=== PATIENT | female | born 1990 | race American Indian/Alaskan Native ===

== ENCOUNTER 2016-08-24 09:05 | Day surgery (SDC) | payer OTHER ==
[~2016-08-24 09:05] MED LIST: ANCEF/STERILE WATER 2 GM/20 ML IV NR
[2016-08-24] MEDS ORDERED: DILAUDID ONE ×3 (09:52→17:15)
[2016-08-24] MEDS ORDERED: DIPRIVAN 10 MG/ML IV ONE ×2 (09:52→13:24)
[2016-08-24] MEDS ORDERED: NACL 0.9% 1000 ML 1,000 ML ONE ×2 (10:28→13:05)
[2016-08-24 10:52] LABS: Basophils % (Auto) 0.4 % (0.0-1.8); Eosinophils % (Auto) 0.2 % (0.0-4.3); Hematocrit 40.1 % (30.3-42.9); Hemoglobin 13.4 gm/dl (10.1-14.3); Mean Corpuscular HGB Conc 33 % (30-34); Mean Corpuscular Hemoglobin 31 pg (28-32); Mean Corpuscular Volume 92 fl (79-97); Platelet Count 328 K/mm3 (140-440); Red Blood Count 4.37 M/mm3 (3.65-5.03); Red Cell Distribution Width 13.3 % (13.2-15.2); White Blood Count 7.4 K/mm3 (4.5-11.0)
--- NOTE | 2016-08-24 11:30 | Anesthesia Day of Surgery ---
Anesthesia Day of Surgery - Day of Surgery Patient Examined: Yes Patient H&P Reviewed: Yes Patient is NPO: Yes
--- NOTE | 2016-08-24 11:32 | Anesthesia Consultation ---
Anesthesia Consult and Med Hx - Airway Anesthetic Teeth Evaluation: Good ROM Head & Neck: Adequate Mental/Hyoid Distance: Adequate Mallampati Class: Class II Intubation Access Assessment: Probably Good - Pulmonary Exam CTA: Yes - Cardiac Exam Cardiac Exam: RRR - Pre-Operative Health Status ASA Pre-Surgery Classification: ASA2 Proposed Anesthetic Plan: General - Pulmonary Hx Smoking: Yes Hx Asthma: Yes (CHILDHOOD ASTHMA ONLY) - Central Nervous System Hx Psychiatric Problems: No - Hematic Hx Sickle Cell Disease: No - Other Systems Hx Alcohol Use: No Hx Substance Use: No Hx Cancer: No - Additional Comments Anesthesia Medical History Comments: NPO after [place]. No prior anesthetic complications. Childhood asthma.
[2016-08-24] MEDS ORDERED: PEPCID PO NR (12:00)
[2016-08-24] MEDS ORDERED: VERSED IV NR (12:00)
[2016-08-24] MEDS ORDERED: NACL 0.9% 1000 ML 1,000 ML IV SCH (12:00)
[2016-08-24] MEDS ORDERED: ZEMURON IV ONE ×2 (12:01→12:23)
[2016-08-24] MEDS ORDERED: DECADRON ONE (12:23)
[2016-08-24] MEDS ORDERED: ROBINUL ONE (12:23)
[2016-08-24] MEDS ORDERED: XYLOCAINE MPF 2% ONE (12:23)
[2016-08-24] MEDS ORDERED: BLOXIVERZ ONE (12:24)
[2016-08-24] MEDS ORDERED: ZOFRAN ONE ×2 (12:24→19:10)
[2016-08-24] MEDS ORDERED: NORMODYNE IV ONE (13:16)
[2016-08-24] MEDS ORDERED: MARCAINE-EPI 0.5%-1:200,000 INFILTRATI ONE ×2 (14:20→15:23)
[2016-08-24] MEDS ORDERED: NACL 0.9% IR ONE (15:23)
[2016-08-24] MEDS: DILAUDID IV PRN ×2 (17:15→17:30)
--- NOTE | 2016-08-24 17:15 | Operative Report ---
PREOPERATIVE DIAGNOSES: 1. Macromastia. 2. Lipodystrophy. 3. Cosmetic encounter. POSTOPERATIVE DIAGNOSES: 1. Macromastia. 2. Lipodystrophy. 3. Cosmetic encounter. PROCEDURE: 1. Bilateral reduction mammoplasty with nipple amputation. 2. Abdominoplasty. SURGEON: Brandyn Gauthier MD VEGETABLE I FARMWORKER: Rian Del Cid CSA FINDINGS: 1480 g removed from the right breast, 1940 g removed from the left breast. DESCRIPTION OF PROCEDURE: The patient was brought to the operating room and placed on the table in supine position. Following administration of general anesthesia, bilateral breasts and abdomen were prepped with a Betadine solution and draped in the usual sterile manner. A #10 blade scalpel was used to make a circumareolar skin incision followed by de-epithelization of an inferior dermal pedicle. Modified Mondragon pattern skin markings were incised with scalpel, deepened through subcutaneous fat and breast tissue using electrocautery. Skin flaps were raised in standard manner as was fashioning of an inferior central mound pedicle. Breast tissue was resected inclusive of bilateral nipple areolar complexes due to the excessive inframammary fold to nipple distance, placing the nipple areolar complex at risk for ischemia. Hemostasis controlled using electrocautery. Skin flaps were closed over 10-mm Marvin drain using interrupted and running subcuticular 2-0 Monocryl sutures. Attention was then directed to the abdomen where a Pfannenstiel skin incision was made as well as an incision around the umbilicus. Abdominal skin flap was elevated up to the costal margins and xiphoid process superiorly in the subcutaneous plane. The rectus fascia was plicated across the midline with a looped #1 Horizontal mattress suture oversewn with a #1 Prolene suture, 0.5% Marcaine with epinephrine was injected on either side of the midline deep to the fascia. Three 10-mm ILSA drains were placed. New site made for the umbilicus. Skin closure performed using interrupted and running subcuticular 2-0 Monocryl sutures. Mastisol, Steri-Strips and sterile dressings applied. The patient tolerated the procedure well and returned to recovery room in stable condition. JOB# [id number] FTW/NTS
--- NOTE | 2016-08-24 17:18 | Post Anesthesia Evaluation ---
- Post Anesthesia Evaluation Patient Participated: Yes Airway Patent: Yes Stable Respiratory Function: Yes Nausea/Vomiting: No Temp > 96.8F: Yes Pain Manageable: Yes Adequeate Hydration: Yes Anesthesia Complications: No
[2016-08-24] MEDS ORDERED: NORCO 5/325 PO PRN ×2 (17:39→19:30)
[2016-08-24] MEDS ORDERED: ZOFRAN IV PRN (17:39)
[2016-08-24 20:06] VITALS: BP 147/72
== END 2016-08-24 19:40 | disposition home or self-care (01) ==
LOC: OR 09:05
PROVIDERS: ATTEND Plastic Surgery
DX: Z41.1 Encounter for cosmetic surgery (principal); N62 Hypertrophy of breast; E88.1 Lipodystrophy, not elsewhere classified; F17.210 Nicotine dependence, cigarettes, uncomplicated; J45.909 Unspecified asthma, uncomplicated; Z83.3 Family history of diabetes mellitus; Z82.49 Family history of ischemic heart disease and other diseases of the circulatory system; Z79.899 Other long term (current) drug therapy
CPT/HCPCS: 15830; 15847; 19318; 36415; 81025; 82962; 85025; 88305; J0690; J1100; J1170; J2250; J2405; J2704; J2710; J7030

== ENCOUNTER 2016-12-14 06:35 | Day surgery (SDC) | payer OTHER ==
[2016-12-14] MEDS ORDERED: ANCEF/STERILE WATER 2 GM/20 ML IV NR (07:00)
[2016-12-14] MEDS ORDERED: LACTATED RINGERS 1,000 ML IV SCH (08:00)
[2016-12-14] MEDS ORDERED: VERSED IV NR (08:00)
[2016-12-14] MEDS ORDERED: PEPCID PO NR (08:00)
[2016-12-14] MEDS ORDERED: DILAUDID IV PRN (08:20)
[2016-12-14] MEDS ORDERED: ZOFRAN IV PRN (08:20)
--- NOTE | 2016-12-14 08:20 | Anesthesia Day of Surgery ---
Anesthesia Day of Surgery - Day of Surgery Patient Examined: Yes Patient H&P Reviewed: Yes Patient is NPO: Yes
--- NOTE | 2016-12-14 08:20 | Anesthesia Consultation ---
Anesthesia Consult and Med Hx Date of service: 12/14/16 - Airway Anesthetic Teeth Evaluation: Good ROM Head & Neck: Adequate Mental/Hyoid Distance: Adequate Mallampati Class: Class II Intubation Access Assessment: Probably Good - Pulmonary Exam CTA: Yes - Cardiac Exam Cardiac Exam: RRR - Pre-Operative Health Status ASA Pre-Surgery Classification: ASA2 Proposed Anesthetic Plan: General - Pulmonary Hx Smoking: Yes (QUIT 1 YRS AGO) Hx Asthma: Yes (CHILDHOOD ASTHMA ONLY) Hx Sleep Apnea: No ([place] PRE SCREEN LOW RISK) - Cardiovascular System Hx Hypertension: No - Central Nervous System Hx Psychiatric Problems: No - Hematic Hx Sickle Cell Disease: No - Other Systems Hx Alcohol Use: No Hx Substance Use: No Hx Cancer: No Hx Obesity: Yes
[2016-12-14] MEDS ORDERED: XYLOCAINE MPF 2% ONE (08:36)
[2016-12-14] MEDS ORDERED: DECADRON ONE (08:36)
[2016-12-14] MEDS ORDERED: DIPRIVAN 10 MG/ML IV ONE ×3 (08:37→10:36)
[2016-12-14] MEDS ORDERED: SUBLIMAZE ONE (08:37)
[2016-12-14] MEDS ORDERED: ROBINUL ONE ×2 (08:52)
[2016-12-14] MEDS ORDERED: NEOSTIGMINE ONE (08:52)
[2016-12-14] MEDS ORDERED: ZEMURON IV ONE (08:53)
[2016-12-14] MEDS ORDERED: ADRENALIN ONE (09:01)
[2016-12-14 09:13] LABS: Hematocrit 43.4 % (30.3-42.9); Hemoglobin 13.9 gm/dl (10.1-14.3)
[2016-12-14] MEDS ORDERED: NEO SYNEPHRINE/NS Syringe(OR USE) IV ONE (10:00)
[2016-12-14] MEDS ORDERED: ePHEDrine SULFATE ONE (10:15)
[2016-12-14] MEDS ORDERED: LACTATED RINGERS 1,000 ML ONE (10:22)
[2016-12-14] MEDS ORDERED: NACL 0.9% IR ONE (10:40)
[2016-12-14] MEDS ORDERED: DEMEROL IV PRN (11:49)
[2016-12-14] MEDS ORDERED: DEMEROL ONE (11:51)
--- NOTE | 2016-12-14 12:13 | Post Anesthesia Evaluation ---
- Post Anesthesia Evaluation Patient Participated: Yes Airway Patent: Yes Stable Respiratory Function: Yes Nausea/Vomiting: No Temp > 96.8F: Yes Pain Manageable: Yes Adequeate Hydration: Yes Anesthesia Complications: No Block Receding Appropriately: Not Applicable Patient on Ventilator: No
--- NOTE | 2016-12-14 12:31 | Discharge Summary ---
Short Stay Discharge Plan Activity: no restrictions Weight Bearing Status: Full Weight Bearing Diet: regular Wound: remove dressing (5 days) Follow up with: LAURA MOLINA MD [Primary Care Provider] - 6 Weeks WORK,DENISHA Coyne JR, MD [Staff Physician] - 7 Days
--- NOTE | 2016-12-14 12:41 | Short Stay Summary ---
Short Stay Documentation Date of service: 12/14/16 - Allergies and Medications Current Medications: Allergies No Known Allergies Allergy (Verified 12/08/16 16:55) Home Medications Medication Instructions Recorded Confirmed Last Taken Type Norethindrone-E.estradiol-Iron [Lo 1 each PO DAILY 08/17/16 12/14/16 12/13/16 History Loestrin Fe 1-10 Tablet] Active Medications Cefazolin Sodium (Ancef/Sterile Water 2 Gm/20 Ml) 2 gm IV PREOP NR Stop: 12/14/16 23:59 Hydromorphone HCl (Dilaudid) 0.5 mg IV Q10MIN PRN PRN Reason: Pain , Severe (7-10) Stop: 12/14/16 16:00 Lactated Ringer's (Lactated Ringers) 1,000 mls @ 75 mls/hr IV DIRECT LONNIE Last Admin: 12/14/16 08:40 Dose: 75 mls/hr Meperidine HCl (Demerol) 25 mg IV ONCE PRN PRN Reason: Shivering Stop: 12/14/16 16:00 Last Admin: 12/14/16 11:53 Dose: 25 mg Midazolam HCl (Versed) 2 mg IV PREOP NR Stop: 12/14/16 23:59 Last Admin: 12/14/16 08:59 Dose: 2 mg Ondansetron HCl (Zofran) 4 mg IV ONCE PRN PRN Reason: Nausea And Vomiting Stop: 12/14/16 16:00 - Brief post op/procedure progress note Date of procedure: 12/14/16 Pre-op diagnosis: Tera. Absence of Nipples/Tera. Acquired Breast deformity Post-op diagnosis: same Procedure: Tera. Nipple Reconstruction Anesthesia: GETA Surgeon: DENISHA HILLMAN JR Estimated blood loss: minimal Specimen disposition: to lab Condition: stable - Hospital course Hospital course: Patient was initially scheduled for Tera. Nipple Reconstruction and Liposuction of Flanks but due to issues with finances the cosmetic procedure could not be performed. - Disposition Condition at discharge: Good Disposition: DC-01 TO HOME OR SELFCARE Short Stay Discharge Plan Follow up with: DENISHA HILLMAN JR, MD [Staff Physician] - 7 Days LAURA MOLINA MD [Primary Care Provider] - 6 Weeks
--- NOTE | 2016-12-14 14:12 | Operative Report ---
SERVICES: Plastic Surgery. PREOPERATIVE DIAGNOSES: 1. Bilateral absence of nipples. 2. Bilateral acquired breast deformity. 3. Lipodystrophy. POSTOPERATIVE DIAGNOSES: 1. Bilateral absence of nipples. 2. Bilateral acquired breast deformity. 3. Lipodystrophy. PROCEDURE: Bilateral nipple reconstruction. SURGEON: Brandyn Gauthier MD PLANTING MACHINE CREWMAN: DESCRIPTION OF PROCEDURE: The patient was brought to the operating room and placed on the table in supine position. Following administration of general anesthesia, bilateral breasts were prepped with Betadine solution and draped in the usual sterile manner. A #11 blade scalpel was used to incise preoperative flag-shaped markings for a nipple flap, raised in standard manner, folded around upon itself to form a cylinder, secured in place with interrupted 3-0 Monocryl sutures. Donor site was closed with interrupted 2-0 Monocryl sutures. A dermal base for the nipple-areolar complex was deepithelialized and closure was performed with interrupted and running subcuticular 3-0 Monocryl sutures. Mastisol, Steri-Strips, and sterile dressings applied. The patient tolerated the procedure well. The plan was to proceed with liposuction of flanks and mid back; however, due to confusion and inability to meet financial obligations of the hospital, this portion of the procedure could not be performed. JOB# [id number] FTW/AUBREE
[2016-12-14 15:32] VITALS: BP 165/87
== END 2016-12-14 13:17 | disposition home or self-care (01) ==
LOC: OR 06:35
PROVIDERS: ATTEND Plastic Surgery
DX: Z90.13 Acquired absence of bilateral breasts and nipples (principal); N61.0 Mastitis without abscess; N64.1 Fat necrosis of breast; N60.31 Fibrosclerosis of right breast; N60.32 Fibrosclerosis of left breast; N64.89 Other specified disorders of breast; E88.1 Lipodystrophy, not elsewhere classified; J45.909 Unspecified asthma, uncomplicated; E66.9 Obesity, unspecified; Z68.34 Body mass index [BMI] 34.0-34.9, adult; Z87.891 Personal history of nicotine dependence; Z98.890 Other specified postprocedural states; Z83.3 Family history of diabetes mellitus; Z82.49 Family history of ischemic heart disease and other diseases of the circulatory system
CPT/HCPCS: 19350; 36415; 81025; 85014; 85018; 88305; J0171; J0690; J1100; J1170; J2175; J2250; J2370; J2405; J2704; J2710; J3010; J7120; 88307

== ENCOUNTER 2017-03-22 06:09 | Day surgery (SDC) | payer OTHER ==
--- NOTE | 2017-03-22 07:30 | Anesthesia Consultation ---
Anesthesia Consult and Med Hx Date of service: 03/22/17 - Airway Anesthetic Teeth Evaluation: Good ROM Head & Neck: Adequate Mental/Hyoid Distance: Adequate Mallampati Class: Class II Intubation Access Assessment: Probably Good - Pulmonary Exam CTA: Yes - Cardiac Exam Cardiac Exam: RRR - Pre-Operative Health Status ASA Pre-Surgery Classification: ASA2 Proposed Anesthetic Plan: General - Pulmonary Hx Smoking: Yes (QUIT 1 YRS AGO) Hx Asthma: Yes (CHILDHOOD ASTHMA ONLY) Hx Sleep Apnea: No ([place] PRE SCREEN LOW RISK) - Cardiovascular System Hx Hypertension: No - Central Nervous System Hx Psychiatric Problems: No - Hematic Hx Sickle Cell Disease: No - Other Systems Hx Alcohol Use: No Hx Substance Use: No Hx Cancer: No Hx Obesity: Yes - Additional Comments Anesthesia Medical History Comments: PONV X 1
--- NOTE | 2017-03-22 07:30 | Anesthesia Day of Surgery ---
Anesthesia Day of Surgery - Day of Surgery Patient Examined: Yes Patient is NPO: Yes
[2017-03-22] MEDS ORDERED: ZOFRAN IV PRN (07:32)
[2017-03-22] MEDS ORDERED: REGLAN PO NR (08:00)
[2017-03-22] MEDS ORDERED: LACTATED RINGERS 1,000 ML IV SCH (08:00)
[2017-03-22] MEDS ORDERED: VERSED IV NR (08:00)
[2017-03-22] MEDS ORDERED: TRANSDERM-SCOP TD NR (08:00)
[2017-03-22] MEDS ORDERED: PEPCID PO NR (08:00)
[2017-03-22 08:36] LABS: Hematocrit 42.5 % (30.3-42.9); Hemoglobin 14.1 gm/dl (10.1-14.3)
[2017-03-22] MEDS ORDERED: XYLOCAINE 1% 20 mL ONE (09:11)
[2017-03-22] MEDS ORDERED: MARCAINE 0.5% 30 ML INFILTRATI ONE (09:12)
[2017-03-22] MEDS ORDERED: NACL 0.9% IR ONE (09:14)
[2017-03-22] MEDS ORDERED: XYLOCAINE 1% 20 mL INFILTRATI ONE (09:14)
[2017-03-22] MEDS ORDERED: MARCAINE 0.5% INFILTRATI ONE (09:14)
[2017-03-22] MEDS ORDERED: DILAUDID ONE ×2 (09:32→09:43)
[2017-03-22] MEDS ORDERED: DIPRIVAN 10 MG/ML IV ONE ×3 (09:33→10:08)
[2017-03-22] MEDS ORDERED: DECADRON ONE (09:33)
[2017-03-22] MEDS ORDERED: XYLOCAINE MPF 2% ONE (09:33)
[2017-03-22] MEDS ORDERED: ZOFRAN ONE (09:33)
[2017-03-22] MEDS ORDERED: ROBINUL ONE (09:34)
[2017-03-22] MEDS ORDERED: NORMODYNE IV ONE (09:44)
[2017-03-22] MEDS ORDERED: APRESOLINE ONE (09:48)
[2017-03-22] MEDS ORDERED: ANCEF/STERILE WATER 2 GM/20 ML IV NR (10:00)
[2017-03-22] MEDS ORDERED: BREVIBLOC IV ONE (10:02)
[2017-03-22] MEDS ORDERED: VERSED ONE (10:08)
[2017-03-22] MEDS ORDERED: LACTATED RINGERS 1,000 ML ONE (10:22)
--- NOTE | 2017-03-22 11:00 | Operative Report ---
PREOPERATIVE DIAGNOSES: 1. Hypertrophic keloidal scarring of left breast. 2. Hypertrophic/keloid scarring of left abdomen. POSTOPERATIVE DIAGNOSES: 1. Hypertrophic keloidal scarring of left breast. 2. Hypertrophic/keloid scarring of left abdomen. PROCEDURES: 1. Complex scar revision of left breast, 38 cm. 2. Complex closure of left abdomen, 30 cm. SURGEON: Brandyn Gauthier MD GRADER TENDER: , DELROY. DESCRIPTION OF PROCEDURE: The patient was brought to the operating room and placed on the table in supine position. Following administration of general anesthesia, the abdomen and left breasts were prepped with Betadine solution and draped in the usual sterile manner. A #10 blade scalpel was used to circumferentially excise the keloid scar, sent to pathology as a specimen. Closure was performed in layers using interrupted and running subcuticular 2-0 Monocryl sutures. Mastisol, Steri-Strips, and sterile dressings applied. The patient tolerated the procedure well and returned to recovery room in stable condition and will be undergoing radiation therapy later this afternoon. JOB# [id number] FTW/NTS
[2017-03-22] MEDS: DILAUDID IV PRN ×2 (11:08→11:35)
[2017-03-22 12:50] VITALS: BP 146/81
== END 2017-03-22 13:05 | disposition home or self-care (01) ==
LOC: OR 06:09
PROVIDERS: ATTEND Plastic Surgery
DX: L91.0 Hypertrophic scar (principal); L90.5 Scar conditions and fibrosis of skin; J45.909 Unspecified asthma, uncomplicated; E66.9 Obesity, unspecified; Z98.890 Other specified postprocedural states; Z87.891 Personal history of nicotine dependence; Z68.34 Body mass index [BMI] 34.0-34.9, adult
CPT/HCPCS: 13101; 13102; 36415; 81025; 85014; 85018; 88305; J0360; J0690; J1100; J1170; J2250; J2405; J2704; J7120; 88302

== ENCOUNTER 2017-04-05 06:47 | Day surgery (SDC) | payer OTHER ==
[2017-04-05] MEDS ORDERED: NACL BACTERIOSTATIC INFILTRATI ONE (08:49)
--- NOTE | 2017-04-05 09:18 | Anesthesia Day of Surgery ---
Anesthesia Day of Surgery - Day of Surgery Patient Examined: Yes Patient H&P Reviewed: Yes Patient is NPO: Yes
--- NOTE | 2017-04-05 09:19 | Anesthesia Consultation ---
Anesthesia Consult and Med Hx Date of service: 04/05/17 - Airway Anesthetic Teeth Evaluation: Good ROM Head & Neck: Adequate Mental/Hyoid Distance: Adequate Mallampati Class: Class II Intubation Access Assessment: Probably Good - Pulmonary Exam CTA: Yes - Cardiac Exam Cardiac Exam: RRR - Pre-Operative Health Status ASA Pre-Surgery Classification: ASA2 Proposed Anesthetic Plan: General - Pulmonary Hx Smoking: Yes (QUIT 1 YRS AGO) Hx Asthma: Yes (CHILDHOOD ASTHMA ONLY) Hx Sleep Apnea: No ([place] PRE SCREEN LOW RISK) - Cardiovascular System Hx Hypertension: No - Central Nervous System Hx Psychiatric Problems: No - Hematic Hx Sickle Cell Disease: No - Other Systems Hx Alcohol Use: No Hx Substance Use: No Hx Cancer: No Hx Obesity: Yes - Additional Comments Anesthesia Medical History Comments: PONV X 1
[2017-04-05] MEDS ORDERED: ZOFRAN ONE (09:26)
[2017-04-05] MEDS ORDERED: SUBLIMAZE ONE (09:26)
[2017-04-05] MEDS ORDERED: DIPRIVAN 10 MG/ML IV ONE ×2 (09:26→10:25)
[2017-04-05] MEDS ORDERED: DECADRON ONE (09:26)
[2017-04-05] MEDS ORDERED: XYLOCAINE MPF 2% ONE (09:26)
[2017-04-05] MEDS ORDERED: TRANSDERM-SCOP TD NR (10:00)
[2017-04-05] MEDS ORDERED: NACL 0.9% 1000 ML 1,000 ML IV SCH (10:00)
[2017-04-05] MEDS ORDERED: ANCEF/STERILE WATER 2 GM/20 ML IV NR (10:00)
[2017-04-05] MEDS ORDERED: PEPCID PO NR (10:00)
[2017-04-05] MEDS ORDERED: VERSED IV NR (10:00)
[2017-04-05] MEDS ORDERED: NACL 0.9% IR ONE (10:06)
[2017-04-05] MEDS ORDERED: DILAUDID ONE ×2 (10:29→12:14)
[2017-04-05] MEDS: DILAUDID IV PRN ×3 (12:35→12:55)
[2017-04-05] MEDS ORDERED: TORADOL ONE (12:35)
--- NOTE | 2017-04-05 12:53 | Operative Report ---
PREOPERATIVE DIAGNOSES: Hypertrophic/keloid scarring of right breast and right abdomen. POSTPERATIVE DIAGNOSES: Hypertrophic/keloid scarring of right breast and right abdomen. SURGEON: Brandyn Gauthier MD LOCKSTITCH FRONT EDGE TAPE SEWER: Rian Del Cid CSA FINDINGS: Right breast scar measured 35 cm, right abdominal scar measured 33 cm. DESCRIPTION OF PROCEDURE: The patient was brought to the operating room and placed on the table in supine position. Following administration of general anesthesia, bilateral breasts and abdomen were prepped with Betadine solution and draped in the usual sterile manner. A #10 blade scalpel was used to circumferentially excise the scars of the right breast and at the right abdomen and sent to pathology as specimen. Hemostasis was controlled using electrocautery. Closure was performed in layers using interrupted and running subcuticular 2-0 Monocryl sutures followed by Mastisol, Steri-Strips and sterile dressing. The patient tolerated the procedure well and will be returned to recovery room in stable condition. She will be undergoing radiation therapy to the right breast and right abdomen later this afternoon. JOB# [id number] FTW/NTS JEWELL
[2017-04-05] MEDS ORDERED: TORADOL IV ONE (13:30)
[2017-04-05 13:35] VITALS: BP 160/90
== END 2017-04-05 06:48 | disposition home or self-care (01) ==
LOC: OR 06:47
PROVIDERS: ATTEND Plastic Surgery
DX: L91.0 Hypertrophic scar (principal); J45.909 Unspecified asthma, uncomplicated; Z87.891 Personal history of nicotine dependence; E66.9 Obesity, unspecified; Z98.890 Other specified postprocedural states
CPT/HCPCS: 11406; 12037; 81025; 88304; J0690; J1100; J1170; J1885; J2250; J2405; J2704; J3010; J7030; 88305

== ENCOUNTER 2017-05-01 10:55 | Inpatient (IN) | payer OTHER ==
[2017-05-01] MEDS ORDERED: NACL 0.9% 1000 ML 1,000 ML IV ONE (11:42)
[2017-05-01] MEDS ORDERED: ZOFRAN IV ONE ×2 (11:43→14:55)
[2017-05-01] MEDS ORDERED: MORPHINE IV ONE ×2 (11:43→14:55)
[2017-05-01] MEDS ORDERED: ROCEPHIN/NS 1 GM/50 ML 1 GM/50 ML BAG IV ONE (11:45)
--- NOTE | 2017-05-01 11:51 | Emergency Department Report ---
ED General Adult HPI - General Chief complaint: Laceration/Recheck/Suture Stated complaint: ABD PAIN Time Seen by Provider: 05/01/17 11:24 Source: patient Mode of arrival: Ambulatory Limitations: No Limitations - History of Present Illness Initial comments: PT c/o possible infection to surgery site. PT states she originally had Tummy tuck and breast reduction on August 24 2016. PT states she had scar tissue and had scar revision on 03-22-17 (on left side) and again on 04-05-17. PT states for over a week, she has noticed abd swelling. PT states the surgical sites are opening up to lower abd. She states she has had yellow drainage from site x 3 days. PT rates her pain 9/10. PT has [place] for the pain but no improvement. Complaint: post op infection -: Gradual, week(s) Location: chest, abdomen Severity scale (0 -10): 9 Quality: aching Consistency: constant Improves with: none Worsens with: movement, other (palpation ) Associated Symptoms: denies: chest pain, fever/chills, nausea/vomiting - Related Data Home Medications Medication Instructions Recorded Confirmed Last Taken Norethindrone-E.estradiol-Iron [Lo 1 each PO DAILY 08/17/16 04/05/17 04/05/17 05 :00 Loestrin Fe 1-10 Tablet] HYDROcodone/APAP 7.5-325 [[place] 1 each PO Q6HR PRN 04/05/17 04/05/17 04/05/17 05 :00 7.5/325] Allergies Allergy/AdvReac Type Severity Reaction Status Date / Time No Known Allergies Allergy Verified 05/01/17 11:15 ED Review of Systems ROS: Stated complaint: ABD PAIN Other details as noted in HPI Comment: All other systems reviewed and negative Constitutional: denies: chills, fever Respiratory: denies: cough, shortness of breath Cardiovascular: denies: chest pain Gastrointestinal: denies: nausea, vomiting, constipation Genitourinary: denies: dysuria Skin: as per HPI, change in color ED Past Medical Hx - Past Medical History Hx Hypertension: No Hx Sickle Cell Disease: No Hx Asthma: Yes (CHILDHOOD ASTHMA ONLY) Hx HIV: No - Surgical History Hx Breast Surgery: Yes (NIPPLE RECONSTRUCTION, BILATERAL BREAST REDUCTION, L BREAST SCAR REVISION) - Social History Smoking Status: Never Smoker Substance Use Type: None - Medications Home Medications: Home Medications Medication Instructions Recorded Confirmed Last Taken Type Norethindrone-E.estradiol-Iron [Lo 1 each PO DAILY 08/17/16 04/05/17 04/05/17 05 :00 History Loestrin Fe 1-10 Tablet] HYDROcodone/APAP 7.5-325 [[place] 1 each PO Q6HR PRN 04/05/17 04/05/17 04/05/17 05 :00 History 7.5/325] ED Physical Exam - General Limitations: No Limitations General appearance: alert, in no apparent distress - Head Head exam: Present: atraumatic, normocephalic, normal inspection - Eye Eye exam: Present: normal appearance. Absent: conjunctival injection - ENT ENT exam: Present: normal exam, mucous membranes moist, normal external ear exam - Neck Neck exam: Present: normal inspection, full ROM - Respiratory Respiratory exam: Present: normal lung sounds bilaterally, chest wall tenderness (R breast ttp with drainage ,erythema and warmth. L breast ttp along surgical site ). Absent: respiratory distress - Cardiovascular Cardiovascular Exam: Present: regular rate, normal rhythm, normal heart sounds - GI/Abdominal GI/Abdominal exam: Present: soft (with hard scar to tissue to mid abd and horizontal surgical site to pelvis, multiple areas of wound dehesicene ), tenderness, other (surgical site across pelvis, small superfial areas of wound dehisence, surgical site ttp, mid abd with firm area, non tender ) - Extremities Exam Extremities exam: Present: normal inspection, full ROM - Back Exam Back exam: Present: normal inspection, full ROM - Neurological Exam Neurological exam: Present: alert, oriented X3, CN II-XII intact, normal gait - Psychiatric Psychiatric exam: Present: normal affect, normal mood - Skin Skin exam: Present: warm, dry, erythema (lower quarter of the R breast with erythema and edema and tenderness ). Absent: intact ED Course Vital Signs 05/01/17 05/01/17 05/01/17 11:15 12:11 12:41 Temperature 98.8 F Pulse Rate 79 Respiratory 18 16 16 Rate Blood Pressure 133/67 Blood Pressure [Right] O2 Sat by Pulse 100 Oximetry 05/01/17 05/01/17 05/01/17 16:12 16:49 17:09 Temperature 98.5 F Pulse Rate 53 L Respiratory 16 16 16 Rate Blood Pressure Blood Pressure 131/75 [Right] O2 Sat by Pulse 100 Oximetry 05/01/17 17:33 Temperature 98.1 F Pulse Rate 69 Respiratory 18 Rate Blood Pressure Blood Pressure 108/66 [Right] O2 Sat by Pulse 100 Oximetry - Reevaluation(s) Reevaluation #1: 05/01/17 11:54 PT aware of plan of care. Reevaluation #2: 05/01/17 14:58 PT aware of plan of care. PT agrees to admission Dr [place] aware of pt and agrees to plan of care. - Consultations Consultation #1: 05/01/17 14:58 Dr Gauthier advised hospitalist to admit for infection and follow up next week Dr Rey accepting. - Pulse Oximetry Interpretation Digit-Finger Initial Pulse Oximetry Readin Actions Taken: none ED Medical Decision Making - Lab Data Result diagrams: 05/01/17 12:21 05/01/17 12:21 Laboratory Results - last 24 hr 05/01/17 05/01/17 05/01/17 12:21 12:21 12:21 WBC 6.6 RBC 3.73 Hgb 11.7 Hct 35.4 MCV 95 MCH 31 MCHC 33 RDW 13.7 Plt Count 297 Lymph % (Auto) 29.7 [place] % (Auto) 10.0 H Eos % (Auto) 0.8 Baso % (Auto) 0.3 Lymph # 2.0 [place] # 0.7 Eos # 0.1 Baso # 0.0 Seg Neutrophils % 59.2 Seg Neutrophils # 3.9 Sodium 142 Potassium 4.1 Chloride 105.2 Carbon Dioxide 24 Anion Gap 17 BUN 15 Creatinine 0.7 Estimated GFR > 60 BUN/Creatinine Ratio 21 Glucose 67 Lactic Acid 1.00 Calcium 8.5 Total Bilirubin 0.20 AST 22 ALT 21 Alkaline Phosphatase 85 Total Protein 6.6 Albumin 3.3 L Albumin/Globulin Ratio 1.0 - Differential Diagnosis cellulitis, abscess, post op infection Critical Care Time: No Critical care attestation.: If time is entered above; I have spent that time in minutes in the direct care of this critically ill patient, excluding procedure time. ED Disposition Clinical Impression: Cellulitis of right breast Post-operative infection Qualifiers: Encounter type: initial encounter Qualified Code(s): T81.4XXA - Infection following a procedure, initial encounter Wound dehiscence, surgical Qualifiers: Encounter type: initial encounter Qualified Code(s): T81.31XA - Disruption of external operation (surgical) wound, not elsewhere classified, initial encounter Disposition: DC-09 OP ADMIT IP TO THIS HOSP Is pt being admited?: Yes Does the pt Need Aspirin: No Condition: Stable Time of Disposition: 15:02
[2017-05-01] MEDS ORDERED: cefTRIAXone 1 GM in NACL 0.9% 20 ML IV ONE (12:00)
[2017-05-01 13:40] LABS: Alanine Aminotransferase 21 units/L (7-56); Albumin 3.3 g/dL (3.9-5); BUN/Creatinine Ratio 21; Blood Urea Nitrogen 15 mg/dL (7-17); Calcium 8.5 mg/dL (8.4-10.2); Hemolysis Index 53
[2017-05-01 13:42] LABS: Basophils % (Auto) 0.3 % (0.0-1.8); Eosinophils # (Auto) 0.1 K/mm3 (0.0-0.4); Eosinophils % (Auto) 0.8 % (0.0-4.3); Hematocrit 35.4 % (30.3-42.9); Hemoglobin 11.7 gm/dl (10.1-14.3); Lymphocytes % (Auto) 29.7 % (13.4-35.0); Mean Corpuscular HGB Conc 33 % (30-34); Mean Corpuscular Hemoglobin 31 pg (28-32); Mean Corpuscular Volume 95 fl (79-97); Monocytes # (Auto) 0.7 K/mm3 (0.0-0.8); Platelet Count 297 K/mm3 (140-440); Red Blood Count 3.73 M/mm3 (3.65-5.03); Red Cell Distribution Width 13.7 % (13.2-15.2)
[2017-05-01] MEDS: VANCOMYCIN/NS 1 GM/250 ML 1 GM/250 ML BAG IV ONE ×2 (15:44→17:08)
[2017-05-01] MEDS ORDERED: BENADRYL IV ONE (15:52)
[2017-05-01] MEDS ORDERED: BENADRYL ONE (15:54)
[2017-05-01] MEDS ORDERED: ZOFRAN IV PRN (20:32)
[2017-05-01] MEDS ORDERED: TYLENOL PO PRN (20:32)
[2017-05-01] MEDS ORDERED: MILK OF MAGNESIA PO PRN (20:32)
[2017-05-01] MEDS ORDERED: DULCOLAX PR PRN (20:32)
[2017-05-01] MEDS ORDERED: REGLAN IV PRN (20:32)
--- NOTE | 2017-05-01 20:32 | History and Physical Report ---
History of Present Illness Date of examination: 05/01/17 Date of admission: 05/01/17 15:02 Chief complaint: Cc Abd scar revision site drainage of pus Rt Breast scar revision site drainage of pus History of present illness: History of Present Illness PT c/o possible infection to surgery site. PT states she originally had Tummy tuck and breast reduction on August 24 2016. PT states she had scar tissue and had scar revision on 03-22-17 (on left side) and again on 04-05-17 on Rt side. PT states for over a week, she has noticed abd swelling and drainage from couple of open lesions on abdomen and Rt breast.. PT states the surgical sites are opening up to lower abd. She states she has had yellow drainage from site x 3 days. PT rates her pain 9/10. PT has [place] for the pain but no improvement. Past Medical History Hx Asthma: Yes (CHILDHOOD ASTHMA ONLY -Surgical History Hx Breast Surgery: Yes (NIPPLE RECONSTRUCTION, BILATERAL BREAST REDUCTION, L BREAST SCAR REVISION) Tummy Tuck - Social History Smoking Status: Never Smoker Substance Use Type: None Family Hx Htn - Medications Home Medications: Home Medications Medication Instructions Recorded Confirmed Last Taken Type Norethindrone-E.estradiol-Iron [[place] 1 each PO DAILY 08/17/16 04/05/17 04/05/17 05 :00 History Loestrin Fe 1-10 Tablet] HYDROcodone/APAP 7.5-325 [[place] 1 each PO Q6HR PRN 04/05/17 04/05/17 04/05/17 05 :00 History 7.5/325] Review of Systems Stated complaint: ABD PAIN Other details as noted in HPI Comment: All other systems reviewed and negative Constitutional: denies: chills, fever Respiratory: denies: cough, shortness of breath Cardiovascular: denies: chest pain Gastrointestinal: denies: nausea, vomiting, constipation Genitourinary: denies: dysuria Skin: as per HPI, change in color Medications and Allergies Allergies Allergy/AdvReac Type Severity Reaction Status Date / Time No Known Allergies Allergy Verified 05/01/17 11:15 Home Medications Medication Instructions Recorded Confirmed Last Taken Type Norethindrone-E.estradiol-Iron [[place] 1 each PO DAILY 08/17/16 04/05/17 04/05/17 05 :00 History Loestrin Fe 1-10 Tablet] HYDROcodone/APAP 7.5-325 [[place] 1 each PO Q6HR PRN 04/05/17 04/05/17 04/05/17 05 :00 History 7.5/325] Exam - Constitutional Vitals: Temp Pulse Resp BP Pulse Ox 98.7 F 72 18 115/67 100 05/01/17 18:01 05/01/17 18:02 05/01/17 18:01 05/01/17 18:01 05/01/17 18:02 General appearance: Present: no acute distress, well-nourished - EENT Eyes: Present: PERRL ENT: hearing intact, clear oral mucosa - Neck Neck: Present: supple, normal ROM - Respiratory Respiratory effort: normal Respiratory: bilateral: CTA - Cardiovascular Heart Sounds: Present: S1 & S2. Absent: rub, click - Extremities Extremities: pulses symmetrical, No edema Peripheral Pulses: within normal limits - Abdominal General gastrointestinal: Present: soft, non-tender, non-distended, normal bowel sounds, other (Drainage of pus -small amount on Rt Abdomen scar near inguinal ligament and also rt breast inferiorly) Female genitourinary: Present: normal - Integumentary Integumentary: Present: clear, warm, dry - Musculoskeletal Musculoskeletal: gait normal, strength equal bilaterally - Psychiatric Psychiatric: appropriate mood/affect, intact judgment & insight - Neurologic Neurologic: CNII-XII intact, moves all extremities - Allied Health Allied health notes reviewed: nursing Results - Labs CBC & Chem 7: 05/02/17 06:11 05/02/17 06:11 Labs: Laboratory Last Values WBC 6.6 K/mm3 (4.5-11.0) 05/01/17 12:21 RBC 3.73 M/mm3 (3.65-5.03) 05/01/17 12:21 Hgb 11.7 gm/dl (10.1-14.3) 05/01/17 12:21 Hct 35.4 % (30.3-42.9) 05/01/17 12:21 MCV 95 fl (79-97) 05/01/17 12:21 MCH 31 pg (28-32) 05/01/17 12:21 MCHC 33 % (30-34) 05/01/17 12:21 RDW 13.7 % (13.2-15.2) 05/01/17 12:21 Plt Count 297 K/mm3 (140-440) 05/01/17 12:21 Lymph % (Auto) 29.7 % (13.4-35.0) 05/01/17 12:21 [place] % (Auto) 10.0 % (0.0-7.3) H 05/01/17 12:21 Eos % (Auto) 0.8 % (0.0-4.3) 05/01/17 12:21 Baso % (Auto) 0.3 % (0.0-1.8) 05/01/17 12:21 Lymph # 2.0 K/mm3 (1.2-5.4) 05/01/17 12:21 [place] # 0.7 K/mm3 (0.0-0.8) 05/01/17 12:21 Eos # 0.1 K/mm3 (0.0-0.4) 05/01/17 12:21 Baso # 0.0 K/mm3 (0.0-0.1) 05/01/17 12:21 Seg Neutrophils % 59.2 % (40.0-70.0) 05/01/17 12:21 Seg Neutrophils # 3.9 K/mm3 (1.8-7.7) 05/01/17 12:21 Sodium 142 mmol/L (137-145) 05/01/17 12:21 Potassium 4.1 mmol/L (3.6-5.0) 05/01/17 12:21 Chloride 105.2 mmol/L (98-107) 05/01/17 12:21 Carbon Dioxide 24 mmol/L (22-30) 05/01/17 12:21 Anion Gap 17 mmol/L 05/01/17 12:21 BUN 15 mg/dL (7-17) 05/01/17 12:21 Creatinine 0.7 mg/dL (0.7-1.2) 05/01/17 12:21 Estimated GFR > 60 ml/min 05/01/17 12:21 BUN/Creatinine Ratio 21 % 05/01/17 12:21 Glucose 67 mg/dL (65-100) 05/01/17 12:21 Lactic Acid 1.00 mmol/L (0.7-2.0) 05/01/17 12:21 Calcium 8.5 mg/dL (8.4-10.2) 05/01/17 12:21 Total Bilirubin 0.20 mg/dL (0.1-1.2) 05/01/17 12:21 AST 22 units/L (5-40) 05/01/17 12:21 ALT 21 units/L (7-56) 05/01/17 12:21 Alkaline Phosphatase 85 units/L (35-129) 05/01/17 12:21 Total Protein 6.6 g/dL (6.3-8.2) 05/01/17 12:21 Albumin 3.3 g/dL (3.9-5) L 05/01/17 12:21 Albumin/Globulin Ratio 1.0 % 05/01/17 12:21 Assessment and Plan Advance Directives: Yes (full code) VTE prophylaxis?: Chemical Plan of care discussed with patient/family: Yes - Patient Problems (1) Cellulitis of right breast Current Visit: Yes Status: Acute Plan to address problem: IV Vancomycin started ID Consult requested (2) Post-operative infection Current Visit: Yes Status: Acute Qualifiers: Encounter type: initial encounter Qualified Code(s): T81.4XXA - Infection following a procedure, initial encounter Plan to address problem: Wound care IV Abx ID consult (3) Wound dehiscence, surgical Current Visit: Yes Status: Acute Qualifiers: Encounter type: initial encounter Qualified Code(s): T81.31XA - Disruption of external operation (surgical) wound, not elsewhere classified, initial encounter Plan to address problem: As Above (4) DVT prophylaxis Current Visit: Yes Status: Acute Plan to address problem: On Lovenox
[2017-05-01] MEDS: MORPHINE IV PRN (20:58)
[2017-05-01] MEDS: D5NS 1,000 ML IV SCH (20:59)
[2017-05-01] MEDS: PEPCID PO SCH (21:00)
[2017-05-01] MEDS ORDERED: VANCOMYCIN PHARMACY TO DOSE IV SCH (21:00)
[2017-05-02] MEDS: VANCOMYCIN 1,250 MG in NACL 0.9% 250ML 250 ML IV SCH ×4 (01:05→23:00)
[2017-05-02 02:27] LABS: Mucus,Urine FEW /HPF
[2017-05-02 02:28] LABS: Bilirubin,Urine NEG (Negative); Blood,Urine NEG (Negative); Color,Urine Yellow (Yellow); Nitrite,Urine NEG (Negative); Protein,Urine <15 mg/dL mg/dL (Negative); Urobilinogen,Urine < 2.0 mg/dL (<2.0)
[2017-05-02 02:47] LABS: HCG Qualitative,Urine Negative (Negative)
[2017-05-02] MEDS: BENADRYL IV PRN ×3 (02:49→19:00)
[2017-05-02] MEDS: MORPHINE IV PRN ×2 (02:56→11:11)
[2017-05-02] MEDS: PERCOCET 5/325 PO PRN ×3 (06:45→21:53)
[2017-05-02 07:15] LABS: Basophils % (Auto) 0.2 % (0.0-1.8); Eosinophils # (Auto) 0.1 K/mm3 (0.0-0.4); Hemoglobin 11.9 gm/dl (10.1-14.3); Lymphocytes # (Auto) 2.6 K/mm3 (1.2-5.4); Mean Corpuscular HGB Conc 33 % (30-34); Mean Corpuscular Hemoglobin 31 pg (28-32); Mean Corpuscular Volume 94 fl (79-97); Monocytes # (Auto) 0.6 K/mm3 (0.0-0.8); Monocytes % (Auto) 9.1 % (0.0-7.3); Platelet Count 305 K/mm3 (140-440); Red Blood Count 3.81 M/mm3 (3.65-5.03); Red Cell Distribution Width 13.8 % (13.2-15.2)
[2017-05-02 07:22] LABS: Alanine Aminotransferase 20 units/L (7-56); Albumin 2.9 g/dL (3.9-5); BUN/Creatinine Ratio 14; Blood Urea Nitrogen 14 mg/dL (7-17); Calcium 8.4 mg/dL (8.4-10.2); Hemolysis Index 10
--- NOTE | 2017-05-02 09:43 | Progress Note ---
Assessment and Plan Assessment and plan: Cellulitis of the right breast. Continue IV antibiotics. ID consultation. ? Wound dehiscence. Consult Dr. Gauthier. History Interval history: No new issues overnight. Hospitalist Physical - Constitutional Vitals: Temp Pulse Resp BP Pulse Ox 98.5 F 70 18 120/61 100 05/02/17 07:40 05/02/17 07:40 05/02/17 07:40 05/02/17 07:40 05/02/17 07:40 General appearance: Present: no acute distress, well-nourished - EENT Eyes: Present: PERRL, EOM intact ENT: hearing intact, clear oral mucosa, dentition normal - Neck Neck: Present: supple, normal ROM - Respiratory Respiratory effort: normal Respiratory: bilateral: CTA - Cardiovascular Rhythm: regular Heart Sounds: Present: S1 & S2. Absent: gallop, rub - Extremities Extremities: no ischemia, No edema, Full ROM - Abdominal General gastrointestinal: soft, non-tender, non-distended, normal bowel sounds - Integumentary Integumentary: Present: clear, warm, dry - Neurologic Neurologic: CNII-XII intact, moves all extremities Results - Labs CBC & Chem 7: 05/02/17 06:11 05/02/17 06:11 Labs: Laboratory Last Values WBC 6.3 K/mm3 (4.5-11.0) 05/02/17 06:11 RBC 3.81 M/mm3 (3.65-5.03) 05/02/17 06:11 Hgb 11.9 gm/dl (10.1-14.3) 05/02/17 06:11 Hct 36.0 % (30.3-42.9) 05/02/17 06:11 MCV 94 fl (79-97) 05/02/17 06:11 MCH 31 pg (28-32) 05/02/17 06:11 MCHC 33 % (30-34) 05/02/17 06:11 RDW 13.8 % (13.2-15.2) 05/02/17 06:11 Plt Count 305 K/mm3 (140-440) 05/02/17 06:11 Lymph % (Auto) 41.0 % (13.4-35.0) H 05/02/17 06:11 [place] % (Auto) 9.1 % (0.0-7.3) H 05/02/17 06:11 Eos % (Auto) 1.0 % (0.0-4.3) 05/02/17 06:11 Baso % (Auto) 0.2 % (0.0-1.8) 05/02/17 06:11 Lymph # 2.6 K/mm3 (1.2-5.4) 05/02/17 06:11 [place] # 0.6 K/mm3 (0.0-0.8) 05/02/17 06:11 Eos # 0.1 K/mm3 (0.0-0.4) 05/02/17 06:11 Baso # 0.0 K/mm3 (0.0-0.1) 05/02/17 06:11 Seg Neutrophils % 48.7 % (40.0-70.0) 05/02/17 06:11 Seg Neutrophils # 3.1 K/mm3 (1.8-7.7) 05/02/17 06:11 Sodium 141 mmol/L (137-145) 05/02/17 06:11 Potassium 4.0 mmol/L (3.6-5.0) 05/02/17 06:11 Chloride 107.0 mmol/L (98-107) 05/02/17 06:11 Carbon Dioxide 25 mmol/L (22-30) 05/02/17 06:11 Anion Gap 13 mmol/L 05/02/17 06:11 BUN 14 mg/dL (7-17) 05/02/17 06:11 Creatinine 1.0 mg/dL (0.7-1.2) 05/02/17 06:11 Estimated GFR > 60 ml/min 05/02/17 06:11 BUN/Creatinine Ratio 14 % 05/02/17 06:11 Glucose 85 mg/dL (65-100) 05/02/17 06:11 Hemoglobin A1c 5.0 % (4-6) 05/01/17 12:21 Lactic Acid 1.00 mmol/L (0.7-2.0) 05/01/17 12:21 Calcium 8.4 mg/dL (8.4-10.2) 05/02/17 06:11 Total Bilirubin < 0.20 mg/dL (0.1-1.2) 05/02/17 06:11 AST 18 units/L (5-40) 05/02/17 06:11 ALT 20 units/L (7-56) 05/02/17 06:11 Alkaline Phosphatase 80 units/L (35-129) 05/02/17 06:11 Total Protein 6.1 g/dL (6.3-8.2) L 05/02/17 06:11 Albumin 2.9 g/dL (3.9-5) L 05/02/17 06:11 Albumin/Globulin Ratio 0.9 % 05/02/17 06:11 Urine Color Yellow (Yellow) 05/02/17 01:30 Urine Turbidity Clear (Clear) 05/02/17 01:30 Urine pH 6.0 (5.0-7.0) 05/02/17 01:30 Ur Specific [place] 1.028 (1.003-1.030) 05/02/17 01:30 Urine Protein <15 mg/dl mg/dL (Negative) 05/02/17 01:30 Urine Glucose (UA) Neg mg/dL (Negative) 05/02/17 01:30 Urine Ketones Neg mg/dL (Negative) 05/02/17 01:30 Urine Blood Neg (Negative) 05/02/17 01:30 Urine Nitrite Neg (Negative) 05/02/17 01:30 Ur Reducing Substances Not Reportable 05/02/17 01:30 Urine Bilirubin Neg (Negative) 05/02/17 01:30 Urine Ictotest Not Reportable 05/02/17 01:30 Urine Urobilinogen < 2.0 mg/dL (<2.0) 05/02/17 01:30 Ur Leukocyte Esterase Neg (Negative) 05/02/17 01:30 Urine WBC (Auto) 1.0 /HPF (0.0-6.0) 05/02/17 01:30 Urine RBC (Auto) 3.0 /HPF (0.0-6.0) 05/02/17 01:30 U Epithel Cells (Auto) 7.0 /HPF (0-13.0) 05/02/17 01:30 Urine Mucus Few /HPF 05/02/17 01:30 Urine HCG, Qual Negative (Negative) 05/02/17 01:30
[2017-05-02] MEDS ORDERED: ROCEPHIN/NS 2 GM/100 ML 2 GM/100 ML BAG IV SCH (10:00)
[2017-05-02] MEDS: cefTRIAXone 2 GM in NACL 0.9% 20 ML IV SCH (10:54)
[2017-05-02] MEDS: PEPCID PO SCH ×2 (11:01→21:53)
[2017-05-02] MEDS: D5NS 1,000 ML IV SCH (12:56)
[2017-05-02] MEDS: AMBIEN PO PRN (21:53)
[2017-05-02] MEDS: LOVENOX SUB-Q SCH (21:55)
[2017-05-03] MEDS: BENADRYL IV PRN ×3 (01:29→21:23)
[2017-05-03] MEDS: MORPHINE IV PRN ×5 (01:29→21:24)
[2017-05-03] MEDS: D5NS 1,000 ML IV SCH ×3 (03:42→23:49)
[2017-05-03] MEDS: PEPCID PO SCH ×3 (08:50→21:24)
[2017-05-03] MEDS: VANCOMYCIN 1,250 MG in NACL 0.9% 250ML 250 ML IV SCH ×3 (09:45→23:32)
[2017-05-03] MEDS ORDERED: VANCOMYCIN/NS 1 GM/250 ML 1 GM/250 ML BAG IV SCH (10:00)
[2017-05-03] MEDS: cefTRIAXone 2 GM in NACL 0.9% 20 ML IV SCH (11:58)
--- NOTE | 2017-05-03 12:44 | Progress Note ---
Assessment and Plan Assessment and plan: Cellulitis of the right breast. Continue IV antibiotics. ID Physician consulted. Wound dehiscence. Dr. Gauthier consulted Hospitalist Physical - Physical exam Narrative exam: GEN APPEARANCE : Not in acute distress,Obese HEENT: Normocephalic, Atraumatic NECK : supple, no JVD LUNGS: Clear to auscultation bilaterally, no rales, no wheeze HEART: S1 and S2 regular, no murmurs, rubs or gallop ABD: Soft, non tender, non distended, normal bowel sounds EXT: No edema, no clubbing, no cyanosis, no cyanosis NEURO: Awake,alert, oriented x 3, no focal signs Breast Skin - Constitutional Vitals: Temp Pulse Resp BP Pulse Ox 98.7 F 76 18 139/70 99 05/03/17 12:32 05/03/17 11:44 05/03/17 12:32 05/03/17 12:32 05/03/17 11:44 General appearance: Present: no acute distress, well-nourished Results - Labs CBC & Chem 7: 05/02/17 06:11 05/02/17 06:11 Labs: Laboratory Last Values WBC 6.3 K/mm3 (4.5-11.0) 05/02/17 06:11 RBC 3.81 M/mm3 (3.65-5.03) 05/02/17 06:11 Hgb 11.9 gm/dl (10.1-14.3) 05/02/17 06:11 Hct 36.0 % (30.3-42.9) 05/02/17 06:11 MCV 94 fl (79-97) 05/02/17 06:11 MCH 31 pg (28-32) 05/02/17 06:11 MCHC 33 % (30-34) 05/02/17 06:11 RDW 13.8 % (13.2-15.2) 05/02/17 06:11 Plt Count 305 K/mm3 (140-440) 05/02/17 06:11 Lymph % (Auto) 41.0 % (13.4-35.0) H 05/02/17 06:11 [place] % (Auto) 9.1 % (0.0-7.3) H 05/02/17 06:11 Eos % (Auto) 1.0 % (0.0-4.3) 05/02/17 06:11 Baso % (Auto) 0.2 % (0.0-1.8) 05/02/17 06:11 Lymph # 2.6 K/mm3 (1.2-5.4) 05/02/17 06:11 [place] # 0.6 K/mm3 (0.0-0.8) 05/02/17 06:11 Eos # 0.1 K/mm3 (0.0-0.4) 05/02/17 06:11 Baso # 0.0 K/mm3 (0.0-0.1) 05/02/17 06:11 Seg Neutrophils % 48.7 % (40.0-70.0) 05/02/17 06:11 Seg Neutrophils # 3.1 K/mm3 (1.8-7.7) 05/02/17 06:11 Sodium 141 mmol/L (137-145) 05/02/17 06:11 Potassium 4.0 mmol/L (3.6-5.0) 05/02/17 06:11 Chloride 107.0 mmol/L (98-107) 05/02/17 06:11 Carbon Dioxide 25 mmol/L (22-30) 05/02/17 06:11 Anion Gap 13 mmol/L 05/02/17 06:11 BUN 14 mg/dL (7-17) 05/02/17 06:11 Creatinine 1.0 mg/dL (0.7-1.2) 05/02/17 06:11 Estimated GFR > 60 ml/min 05/02/17 06:11 BUN/Creatinine Ratio 14 % 05/02/17 06:11 Glucose 85 mg/dL (65-100) 05/02/17 06:11 Hemoglobin A1c 5.0 % (4-6) 05/01/17 12:21 Lactic Acid 1.00 mmol/L (0.7-2.0) 05/01/17 12:21 Calcium 8.4 mg/dL (8.4-10.2) 05/02/17 06:11 Total Bilirubin < 0.20 mg/dL (0.1-1.2) 05/02/17 06:11 AST 18 units/L (5-40) 05/02/17 06:11 ALT 20 units/L (7-56) 05/02/17 06:11 Alkaline Phosphatase 80 units/L (35-129) 05/02/17 06:11 Total Protein 6.1 g/dL (6.3-8.2) L 05/02/17 06:11 Albumin 2.9 g/dL (3.9-5) L 05/02/17 06:11 Albumin/Globulin Ratio 0.9 % 05/02/17 06:11 Urine Color Yellow (Yellow) 05/02/17 01:30 Urine Turbidity Clear (Clear) 05/02/17 01:30 Urine pH 6.0 (5.0-7.0) 05/02/17 01:30 Ur Specific [place] 1.028 (1.003-1.030) 05/02/17 01:30 Urine Protein <15 mg/dl mg/dL (Negative) 05/02/17 01:30 Urine Glucose (UA) Neg mg/dL (Negative) 05/02/17 01:30 Urine Ketones Neg mg/dL (Negative) 05/02/17 01:30 Urine Blood Neg (Negative) 05/02/17 01:30 Urine Nitrite Neg (Negative) 05/02/17 01:30 Ur Reducing Substances Not Reportable 05/02/17 01:30 Urine Bilirubin Neg (Negative) 05/02/17 01:30 Urine Ictotest Not Reportable 05/02/17 01:30 Urine Urobilinogen < 2.0 mg/dL (<2.0) 05/02/17 01:30 Ur Leukocyte Esterase Neg (Negative) 05/02/17 01:30 Urine WBC (Auto) 1.0 /HPF (0.0-6.0) 05/02/17 01:30 Urine RBC (Auto) 3.0 /HPF (0.0-6.0) 05/02/17 01:30 U Epithel Cells (Auto) 7.0 /HPF (0-13.0) 05/02/17 01:30 Urine Mucus Few /HPF 05/02/17 01:30 Urine HCG, Qual Negative (Negative) 05/02/17 01:30 Vancomycin Trough 16.3 ug/mL (5.0-20.0) 05/03/17 06:58
[2017-05-03] MEDS: PERCOCET 5/325 PO PRN (14:03)
[2017-05-03] MEDS: LOVENOX SUB-Q SCH (21:24)
[2017-05-03] MEDS: AMBIEN PO PRN (21:33)
[2017-05-04] MEDS: MORPHINE IV PRN ×5 (01:48→22:00)
[2017-05-04] MEDS: BENADRYL IV PRN ×3 (04:02→19:18)
[2017-05-04] MEDS: VANCOMYCIN 1,250 MG in NACL 0.9% 250ML 250 ML IV SCH (07:59)
[2017-05-04] MEDS: cefTRIAXone 2 GM in NACL 0.9% 20 ML IV SCH (09:09)
[2017-05-04] MEDS: PEPCID PO SCH ×2 (09:10→21:12)
--- NOTE | 2017-05-04 13:02 | Consultation ---
History of Present Illness - Reason for Consult Consult date: 05/04/17 surgical wound infection Requesting physician: REKHA YU - History of Present Illness 26 years old female with history of obesity, underwent a breast reduction on , then liposuction on 12/15/2016 and most recently a breast reduction scar revision on 03/22/2017, admitted on 05/01/17 due to week history of right breast surgical wounds and edema, edema, tenderness and greenish drainage associated with mild subjective fever. She also noted opening of the left lower abdominal wound surgical. In the emergency room, initial temperature was 98.8, heart rate 79, respiration 18 blood pressure 133/67. Initial white count 6.6. Urinalysis was negative. Creatinine was 0.7. Microbiology: Blood cultures: 05/01 neg Wound cultures: 05/02 abdominal wound MSSA 05/02 right breast Staph and GNR Current Antimicrobials: vanco Previous Antimicrobials: Past History Past Surgical History: Other (as per HPI) Social history: no significant social history, single. denies: smoking, alcohol abuse, prescription drug abuse, IV drug use Medications and Allergies Allergies Allergy/AdvReac Type Severity Reaction Status Date / Time No Known Allergies Allergy Verified 05/01/17 11:15 Home Medications Medication Instructions Recorded Confirmed Last Taken Type Norethindrone-E.estradiol-Iron [[place] 1 each PO DAILY 08/17/16 04/05/17 04/05/17 05 :00 History Loestrin Fe 1-10 Tablet] HYDROcodone/APAP 7.5-325 [[place] 1 each PO Q6HR PRN 04/05/17 04/05/17 04/05/17 05 :00 History 7.5/325] Active Meds: Active Medications Acetaminophen (Tylenol) 650 mg PO Q4H PRN PRN Reason: Pain MILD(1-3)/Fever >100.5/HO Bisacodyl (Dulcolax) 10 mg [place] QDAY PRN PRN Reason: Constipation unrelieved by MOM Diphenhydramine HCl (Benadryl) 25 mg IV Q6H PRN PRN Reason: Itching Last Admin: 05/04/17 04:02 Dose: 25 mg Enoxaparin Sodium (Lovenox) 40 mg SUB-Q QDAY@2200 LONNIE Last Admin: 05/03/17 21:24 Dose: 40 mg Famotidine (Pepcid) 20 mg PO BID LONNIE Last Admin: 05/04/17 09:10 Dose: 20 mg Dextrose/Sodium Chloride (D5ns) 1,000 mls @ 100 mls/hr IV DIRECT LONNIE Last Admin: 05/03/17 23:49 Dose: 100 mls/hr Ceftriaxone Sodium 2 gm/ (Sodium Chloride) 20 mls @ 20 mls/10 min IV Q24HR LONNIE Last Admin: 05/04/17 09:09 Dose: 20 mls/10 min Cefazolin Sodium 2 gm/ Sodium (Chloride) 100 mls @ 200 mls/hr IV Q8HR LONNIE Magnesium Hydroxide (Milk Of Magnesia) 30 ml PO Q4H PRN PRN Reason: Constipation Metoclopramide HCl (Reglan) 10 mg IV Q6H PRN PRN Reason: Nausea And Vomiting Morphine Sulfate (Morphine) 4 mg IV Q4H PRN PRN Reason: Pain , Severe (7-10) Last Admin: 05/04/17 11:53 Dose: 4 mg Morphine Sulfate (Morphine) 2 mg IV Q4H PRN PRN Reason: Pain, Moderate (4-6) Last Admin: 05/03/17 08:49 Dose: 2 mg Ondansetron HCl (Zofran) 4 mg IV Q8H PRN PRN Reason: N/V unrelieved by Reglan Oxycodone/Acetaminophen (Percocet 5/325) 1 tab PO Q6H PRN PRN Reason: Pain, Moderate (4-6) Last Admin: 05/03/17 14:03 Dose: 1 tab Zolpidem Tartrate (Ambien) 5 mg PO QHS PRN PRN Reason: Insomnia Last Admin: 05/03/17 21:33 Dose: 5 mg Review of Systems All systems: negative (as per HPI rest neg) Physical Examination - Physical Exam Narrative exam: General appearance: Alert in NAD, conversant Eyes: anicteric sclerae, moist conjunctivae; no lid-lag; PERRLA HENT: Atraumatic; oropharynx clear Neck: Trachea midline; supple, no thyromegaly or lymphadenopathy Lungs: CTA CV: RRR, no murmurs Abdomen: Soft, non-tender; no masses or hepatosplenomegaly Extremities: No peripheral edema or extremity lymphadenopathy Skin: bilateral submamary breast wounds with right wound small wound opening with minimal drainage no purulence, kennedy lower abd ssurg wounds with left sided opening no drainage Psych: Appropriate affect, alert and oriented to person, place and time. Neuro: alert and oriented x 3. Moving all extermities Lines: No CVL / PICC - Constitutional Vitals: Vital Signs Temp Pulse Resp BP Pulse Ox 98.6 F 68 20 122/68 100 05/04/17 07:50 05/04/17 07:50 05/04/17 10:00 05/04/17 07:50 05/04/17 07:50 Temperature -Last 24 Hours Temperature 98.6 F Temperature 98.3 F Temperature 98.4 F Temperature 98.8 F Temperature 98.3 F Results - Labs CBC & Chem 7: 05/02/17 06:11 05/02/17 06:11 Assessment and Plan Assessment: 1) Right breast surgical wound infection: due to Staph and GNRs 2) Left lower abdominal wound infection: due to MSSA Plan: -follow-up final wound cultures - GNR ID is pending -stop vancomycin -start cefazolin IV for now -upon discharge will do ceftin 500 mg PO q12h total 10 days. If GNR is resistant to ceftin will add levaquin. -f/u with primary plastic surgeon Thank you Dr Yu for your consultation, will follow up with you. Belkis Bauer MD Infectious Diseases Specialist [facility] [id number] [phone] O [phone]
[2017-05-04] MEDS: PERCOCET 5/325 PO PRN (13:31)
[2017-05-04] MEDS ORDERED: ceFAZolin 2 GM in NACL 0.9% 100 ML IV SCH (14:00)
--- NOTE | 2017-05-04 16:54 | Progress Note ---
Hospitalist Physical - Constitutional Vitals: Temp Pulse Resp BP Pulse Ox 98.6 F 68 20 122/68 100 05/04/17 07:50 05/04/17 07:50 05/04/17 10:00 05/04/17 07:50 05/04/17 07:50 General appearance: Present: no acute distress, well-nourished Results - Labs CBC & Chem 7: 05/02/17 06:11 05/02/17 06:11 Labs: Laboratory Last Values WBC 6.3 K/mm3 (4.5-11.0) 05/02/17 06:11 RBC 3.81 M/mm3 (3.65-5.03) 05/02/17 06:11 Hgb 11.9 gm/dl (10.1-14.3) 05/02/17 06:11 Hct 36.0 % (30.3-42.9) 05/02/17 06:11 MCV 94 fl (79-97) 05/02/17 06:11 MCH 31 pg (28-32) 05/02/17 06:11 MCHC 33 % (30-34) 05/02/17 06:11 RDW 13.8 % (13.2-15.2) 05/02/17 06:11 Plt Count 305 K/mm3 (140-440) 05/02/17 06:11 Lymph % (Auto) 41.0 % (13.4-35.0) H 05/02/17 06:11 [place] % (Auto) 9.1 % (0.0-7.3) H 05/02/17 06:11 Eos % (Auto) 1.0 % (0.0-4.3) 05/02/17 06:11 Baso % (Auto) 0.2 % (0.0-1.8) 05/02/17 06:11 Lymph # 2.6 K/mm3 (1.2-5.4) 05/02/17 06:11 [place] # 0.6 K/mm3 (0.0-0.8) 05/02/17 06:11 Eos # 0.1 K/mm3 (0.0-0.4) 05/02/17 06:11 Baso # 0.0 K/mm3 (0.0-0.1) 05/02/17 06:11 Seg Neutrophils % 48.7 % (40.0-70.0) 05/02/17 06:11 Seg Neutrophils # 3.1 K/mm3 (1.8-7.7) 05/02/17 06:11 Sodium 141 mmol/L (137-145) 05/02/17 06:11 Potassium 4.0 mmol/L (3.6-5.0) 05/02/17 06:11 Chloride 107.0 mmol/L (98-107) 05/02/17 06:11 Carbon Dioxide 25 mmol/L (22-30) 05/02/17 06:11 Anion Gap 13 mmol/L 05/02/17 06:11 BUN 14 mg/dL (7-17) 05/02/17 06:11 Creatinine 1.0 mg/dL (0.7-1.2) 05/02/17 06:11 Estimated GFR > 60 ml/min 05/02/17 06:11 BUN/Creatinine Ratio 14 % 05/02/17 06:11 Glucose 85 mg/dL (65-100) 05/02/17 06:11 Hemoglobin A1c 5.0 % (4-6) 05/01/17 12:21 Lactic Acid 1.00 mmol/L (0.7-2.0) 05/01/17 12:21 Calcium 8.4 mg/dL (8.4-10.2) 05/02/17 06:11 Total Bilirubin < 0.20 mg/dL (0.1-1.2) 05/02/17 06:11 AST 18 units/L (5-40) 05/02/17 06:11 ALT 20 units/L (7-56) 05/02/17 06:11 Alkaline Phosphatase 80 units/L (35-129) 05/02/17 06:11 Total Protein 6.1 g/dL (6.3-8.2) L 05/02/17 06:11 Albumin 2.9 g/dL (3.9-5) L 05/02/17 06:11 Albumin/Globulin Ratio 0.9 % 05/02/17 06:11 Urine Color Yellow (Yellow) 05/02/17 01:30 Urine Turbidity Clear (Clear) 05/02/17 01:30 Urine pH 6.0 (5.0-7.0) 05/02/17 01:30 Ur Specific [place] 1.028 (1.003-1.030) 05/02/17 01:30 Urine Protein <15 mg/dl mg/dL (Negative) 05/02/17 01:30 Urine Glucose (UA) Neg mg/dL (Negative) 05/02/17 01:30 Urine Ketones Neg mg/dL (Negative) 05/02/17 01:30 Urine Blood Neg (Negative) 05/02/17 01:30 Urine Nitrite Neg (Negative) 05/02/17 01:30 Ur Reducing Substances Not Reportable 05/02/17 01:30 Urine Bilirubin Neg (Negative) 05/02/17 01:30 Urine Ictotest Not Reportable 05/02/17 01:30 Urine Urobilinogen < 2.0 mg/dL (<2.0) 05/02/17 01:30 Ur Leukocyte Esterase Neg (Negative) 05/02/17 01:30 Urine WBC (Auto) 1.0 /HPF (0.0-6.0) 05/02/17 01:30 Urine RBC (Auto) 3.0 /HPF (0.0-6.0) 05/02/17 01:30 U Epithel Cells (Auto) 7.0 /HPF (0-13.0) 05/02/17 01:30 Urine Mucus Few /HPF 05/02/17 01:30 Urine HCG, Qual Negative (Negative) 05/02/17 01:30 Vancomycin Trough 16.3 ug/mL (5.0-20.0) 05/03/17 06:58
[2017-05-04] MEDS ORDERED: ANCEF/STERILE WATER 2 GM/20 ML 2 GM/20 ML SYRINGE IV SCH (17:00)
[2017-05-04] MEDS: LOVENOX SUB-Q SCH (21:12)
[2017-05-04] MEDS: AMBIEN PO PRN (22:00)
[2017-05-05] MEDS ORDERED: ANCEF/STERILE WATER 2 GM/20 ML 2 GM/20 ML SYRINGE IV SCH
[2017-05-05] MEDS: D5NS 1,000 ML IV SCH ×2 (00:54→10:41)
[2017-05-05] MEDS: BENADRYL IV PRN ×3 (01:46→13:03)
[2017-05-05] MEDS: MORPHINE IV PRN ×3 (01:46→10:48)
--- NOTE | 2017-05-05 07:27 | Consultation ---
History of Present Illness - Reason for Consult Consult date: 05/05/17 RT Breast/Abdominal Wall Infection - History of Present Illness Patient well known to me who is s/p recent keloid scar revision of RT Breast and Abdomen followed by post-op XRT who presented over the weekend with cellulitis and draining surgical incisions for which X-biotic therapy was initiated. WBC=6.6 C&S=MSSA and GNR. Patient has no c/o at this time and is feeling better. Past History Past Surgical History: Other (as per HPI) Social history: no significant social history, single. denies: smoking, alcohol abuse, prescription drug abuse, IV drug use Medications and Allergies Allergies Allergy/AdvReac Type Severity Reaction Status Date / Time No Known Allergies Allergy Verified 05/01/17 11:15 Home Medications Medication Instructions Recorded Confirmed Last Taken Type Norethindrone-E.estradiol-Iron [Lo 1 each PO DAILY 08/17/16 04/05/17 04/05/17 05 :00 History Loestrin Fe 1-10 Tablet] HYDROcodone/APAP 7.5-325 [[place] 1 each PO Q6HR PRN 04/05/17 04/05/17 04/05/17 05 :00 History 7.5/325] Active Meds: Active Medications Acetaminophen (Tylenol) 650 mg PO Q4H PRN PRN Reason: Pain MILD(1-3)/Fever >100.5/HO Bisacodyl (Dulcolax) 10 mg SC QDAY PRN PRN Reason: Constipation unrelieved by MOM Diphenhydramine HCl (Benadryl) 25 mg IV Q6H PRN PRN Reason: Itching Last Admin: 05/05/17 01:46 Dose: 25 mg Enoxaparin Sodium (Lovenox) 40 mg SUB-Q QDAY@2200 LONNIE Last Admin: 05/04/17 21:12 Dose: 40 mg Famotidine (Pepcid) 20 mg PO BID [facility] Last Admin: 05/04/17 21:12 Dose: 20 mg Dextrose/Sodium Chloride (D5ns) 1,000 mls @ 100 mls/hr IV DIRECT LONNIE Last Admin: 05/05/17 00:54 Dose: 100 mls/hr Cefazolin Sodium (Ancef/Sterile Water 2 Gm/20 Ml) 2 gm in 20 mls @ 120 mls/hr IV Q8H LONNIE Last Admin: 05/05/17 00:57 Dose: Not Given Magnesium Hydroxide (Milk Of Magnesia) 30 ml PO Q4H PRN PRN Reason: Constipation Metoclopramide HCl (Reglan) 10 mg IV Q6H PRN PRN Reason: Nausea And Vomiting Morphine Sulfate (Morphine) 4 mg IV Q4H PRN PRN Reason: Pain , Severe (7-10) Last Admin: 05/04/17 22:00 Dose: 4 mg Morphine Sulfate (Morphine) 2 mg IV Q4H PRN PRN Reason: Pain, Moderate (4-6) Last Admin: 05/05/17 06:02 Dose: 2 mg Ondansetron HCl (Zofran) 4 mg IV Q8H PRN PRN Reason: N/V unrelieved by Reglan Oxycodone/Acetaminophen (Percocet 5/325) 1 tab PO Q6H PRN PRN Reason: Pain, Moderate (4-6) Last Admin: 05/04/17 13:31 Dose: 1 tab Zolpidem Tartrate (Ambien) 5 mg PO QHS PRN PRN Reason: Insomnia Last Admin: 05/04/17 22:00 Dose: 5 mg Exam - Constitutional Vitals: Temp Pulse Resp BP Pulse Ox 98.4 F 64 18 112/50 100 05/05/17 04:00 05/05/17 04:00 05/05/17 06:02 05/05/17 04:00 05/04/17 23:50 General appearance: Present: no acute distress, other (Surgical incisions are intact and dry without sign of infection. There are several small areas of skin edge separartion along the abdominal and RT Breast surgical incisions. No TTP or masses palpable.) Results - Labs CBC & Chem 7: 05/02/17 06:11 05/02/17 06:11 Assessment and Plan Assessment: Cellulitis Resolved Plan: Okay for DC Home on Oaral X-biotics F/U with me in 7-10 days.
[2017-05-05 07:59] VITALS: BP 118/63
[2017-05-05] MEDS ORDERED: ZYVOX PO SCH (10:00)
[2017-05-05] MEDS ORDERED: ROCEPHIN/NS 2 GM/100 ML 2 GM/100 ML BAG IV SCH (10:00)
[2017-05-05] MEDS ORDERED: cefTRIAXone 2 GM in NACL 0.9% 20 ML IV SCH (10:00)
[2017-05-05] MEDS: PEPCID PO SCH (10:41)
--- NOTE | 2017-05-05 11:41 | Discharge Summary ---
Providers - Providers Date of Admission: 05/01/17 15:02 Date of discharge: 05/05/17 Attending physician: MYRA LEBLANC 05/02/17 07:54 Consult to Physician [CONS] Routine Consulting Provider: JUANJO ENCARNACION Reason For Exam: Surgical incision site infection Place consult to:: Dr. Encarnacion Notified:: yes Phone number called:: [phone] Was contact made?: Yes If yes, spoke with:: Dr. Encarnacion Time called:: 16:20 Comment:: she will see the pt. 05/02/17 07:55 Consult to Wound/ET Nurse [CONS] Routine Reason For Exam: wound eval 05/02/17 09:41 Consult to Physician [CONS] Routine Consulting Provider: DENISHA GAUTHIER JR Reason For Exam: breast cellulitis Place consult to:: Dr. denisha Gauthier Notified:: yes Phone number called:: [phone] Was contact made?: Yes If yes, spoke with:: Dr. Gauthier Time called:: 12:30 Comment:: i will see the pt. Primary care physician: [facility] [facility] Hospitalization Condition: Fair Disposition: DC-01 TO HOME OR SELFCARE Exam - Constitutional Vitals: Temp Pulse Resp BP Pulse Ox 98.5 F 69 18 118/63 99 05/05/17 07:57 05/05/17 07:57 05/05/17 07:57 05/05/17 07:57 05/05/17 07:57 Plan Activity: advance as tolerated Diet: low fat, low cholesterol Additional Instructions: 1.Follow up with PCP or [facility] in 1 week. 2.Follow up with Dr. Gauthier, surgeon in 1 week Follow up with: PRIMARY CAREMD [Primary Care Provider] - 3-5 Days Prescriptions: Cefuroxime [Ceftin] 500 mg PO Q12H 10 Days tablet Linezolid [Zyvox] 600 mg PO BID #20 tablet
== END 2017-05-05 13:00 | disposition home or self-care (01) | DRG 863 ==
LOC: ED 10:55 → 3B-SURG 15:02
PROVIDERS: ADMIT Internal Medicine; ATTEND Internal Medicine
DX: T81.4XXA Infection following a procedure, initial encounter (principal); T81.31XA Disruption of external operation (surgical) wound, not elsewhere classified, initial encounter; N61.0 Mastitis without abscess; Z79.899 Other long term (current) drug therapy
CPT/HCPCS: 36415; 80053; 80202; 81001; 81025; 82140; 83036; 85025; 87040; 87076; 87116; 87186; 96374; 96375; 96376; J0690; J0696; J1200; J1650; J2270; J2405; J3370; J7030; J7042; J7050